=== PATIENT | male | born 1955 | race Caucasian/White ===

== ENCOUNTER 2024-07-13 11:38 | Emergency (ER) | payer MEDICARE ==
[~2024-07-13] VITALS: Ht 177.8 cm; Wt 91.0 kg
[2024-07-13 11:49] VITALS: O2SAT 96
[2024-07-13 11:52] VITALS: TEMP 98.5
[2024-07-13] MEDS ORDERED: CELE100C MT (13:43)
[2024-07-13] MEDS ORDERED: OXYC-100 MT (14:03)
[2024-07-13 14:17] VITALS: BP 130/77; PULSE 80; RESP 15
== END 2024-07-13 14:18 | disposition home or self-care (01) ==
LOC: ER 11:38
DX: M54.2 Cervicalgia (principal); E11.9 Type 2 diabetes mellitus without complications; I10 Essential (primary) hypertension; Z98.890 Other specified postprocedural states
CPT/HCPCS: 72040; 99283